=== PATIENT | male | born 1975 | race Native Hawaiian/Other Pacific Islander ===

== ENCOUNTER 2016-11-27 20:23 | Emergency (ER) | payer SELFPAY ==
[2016-11-27 23:27] VITALS: BP 133/69; PULSE 78; RESP 18; TEMP 98; O2SAT 100
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
--- NOTE | 2016-11-28 10:20 | RAD ---
HISTORY: pain, edema, ecchymosis COMPARISON: No prior FINDINGS: BONES: Normal. No fracture. JOINTS: Normal. No osteoarthritis. SOFT TISSUE: Normal. OTHER FINDINGS: None . IMPRESSION: Normal Bone Xray.
== END 2016-11-27 23:30 | disposition home or self-care (01) ==
LOC: H.ER 20:23
DX: S80.10XA Contusion of unspecified lower leg, initial encounter (principal)